=== PATIENT | female | born 1945 | race Caucasian/White ===

== ENCOUNTER 2019-09-08 11:40 | Emergency (ER) | payer MEDICARE ==
[2019-09-08 11:58] VITALS: BP 157/83
--- NOTE | 2019-09-08 12:08 | ED Physician Documentation ---
Nausea/Vomiting/Diarrhea - HISTORIAN Historian: patient - HPI Stated Complaint: Emesis Chief Complaint: Nausea,Vomiting,Diarrhea Additional Information: Patient presents to ED with a 30 hour history of nausea/vomiting. Patient odette mills vomiting started last night around 1900. She has had about 10 episodes of emesis since that time. She is traveling from [place], visiting family in [place] and ultimately going to [place]. Patient reports soft bowel movements the past 4 days. She denies fever, abdominal pain, blood in stool or urinary symptoms Onset: hours (30) Duration: persistent Timing: sudden onset Context: denies: out of country travel, bad food Severity: moderate - Associated Symptoms Vomiting: bilious Diarrhea: other (soft stools) Abdominal Pain: none - ROS CONST: denies: fever, chills CVS/RESP: denies: chest pain, shortness of breath, cough GI/: denies: constipation, problems urinating EYES/ENT: none MS/SKIN/LYMPH: other (muscle aches) NEURO/PSYCH: denies: headache - PAST HX Past History: none Other History: cardiac disease Surgeries/Procedures: cholecystectomy Allergies/Adverse Reactions: Allergies Allergy/AdvReac Type Severity Reaction Status Date / Time No Known Allergies Allergy Verified 09/08/19 11:58 Home Medications: Ambulatory Orders Medication Instructions Recorded Aspirin [Anastasiya] 1 tab PO DAILY 09/08/19 Atenolol [Tenormin] 0.5 tab PO DAILY 09/08/19 Fluticasone/Vilanterol [Breo 1 puff INH DAILY 09/08/19 Ellipta 100-25 Mcg INH] Levothyroxine Sodium [Synthroid] 1 tab PO DAILY 09/08/19 Ondansetron HCl Rapdis [Zofran Odt] 4 mg PO Q8 PRN #20 tab 09/08/19 Rosuvastatin Calcium [Crestor] 1 tab PO DAILY 09/08/19 - SOCIAL HX Smoking History: non-smoker Alcohol Use: none Drug Use: none - FAMILY HX Family History: none - VITAL SIGNS Vital Signs: Vital Signs Temp Pulse Resp BP Pulse Ox 99.3 F 75 16 157/83 98 09/08/19 13:29 09/08/19 13:29 09/08/19 13:29 09/08/19 13:29 09/08/19 13:29 - REVIEWED ASSESSMENTS Nursing Assessment Reviewed: Yes Vitals Reviewed: Yes Progress - Progress Progress: 1245 Patient feeling better after Zofran - EKG/XRAY/CT Comments: [address] elevation ED Results Lab/Radiology - Lab Results Lab Results: Lab Results 09/08/19 09/08/19 09/08/19 12:20 12:20 12:20 WBC 9.70 K/ul K/ul (4.00-12.00) RBC 4.75 M/ul M/ul (3.90-5.20) Hgb 14.8 g/dL g/dL (11.5-16.0) Hct 44.6 % % (34.5-46.5) MCV 94.0 fl fl (80.0-100.0) MCH 31.1 pg pg (28.0-34.0) MCHC 33.1 g/dL g/dL (30.0-36.0) RDW 11.8 % % (11.3-14.3) Plt Count 143 K/mm3 K/mm3 (130-400) Neut % (Auto) 88.6 % H % (39.0-79.0) Lymph % (Auto) 6.7 % L % (16.0-50.0) [place] % (Auto) 3.5 % % (0.0-11.0) Eos % (Auto) 0.9 % % (0.0-6.8) Baso % (Auto) 0.3 % % (0.0-1.5) Neut # (Auto) 8.6 # k/uL H # k/uL (1.4-7.7) Lymph # (Auto) 0.7 # k/uL # k/uL (0.6-4.0) [place] # (Auto) 0.3 # k/uL # k/uL (0.0-0.9) Eos # (Auto) 0.9 # k/uL H # k/uL (0.0-0.6) Baso # (Auto) 0.0 # k/uL # k/uL (0.0-0.5) Sodium 141 mmol/L mmol/L (137-145) Potassium 4.0 mmol/L mmol/L (3.5-5.1) Chloride 104 mmol/L mmol/L (98-107) Carbon Dioxide 26 mmol/L mmol/L (22-30) Anion Gap 15.0 BUN 14 mg/dL mg/dL (7-17) Creatinine 0.68 mg/dL mg/dL (0.52-1.04) Estimated Creat Clear 87 Est GFR ( Amer) > 60 (60 - ) Est GFR (Non-Af Amer) > 60 (60 - ) Glucose 153 mg/dL H mg/dL (74-106) Calcium 9.8 mg/dL mg/dL (8.4-10.2) Total Bilirubin 2.6 mg/dL H mg/dL (0.2-1.3) AST 38 U/L U/L (15-46) ALT 21 U/L U/L (0-35) Alkaline Phosphatase 71 U/L U/L (38-126) Troponin I < 0.012 ng/mL L ng/mL (0.012-0.034) Total Protein 8.4 g/dL H g/dL (6.3-8.2) Albumin 4.8 g/dL g/dL (3.5-5.0) UA negative for infection - Orders Orders: ED Orders Category Date Time Status Place IV Lock 1T Care 09/08/19 12:05 Active CBC/PLATELET/DIFF Routine Lab 09/08/19 12:20 Completed CMP Routine Lab 09/08/19 12:20 Completed TROPONIN I Stat Lab 09/08/19 12:20 Completed UA W/MICRO IF INDICATED Routine Lab 09/08/19 12:20 Received 0.9 % Sodium Chloride [Normal Saline] 1,000 ml Med 09/08/19 12:05 Discontinued IV Q1H Ondansetron HCl/Pf [Zofran] Med 09/08/19 12:05 Discontinued 4 mg IVP NOW ONE EKG WITH COMPARISON Stat Ther 09/08/19 Ordered Nausea Physical Exam - EXAM General Appearance: no acute distress, alert EENT: SALLY Neck: supple Respiratory: no resp distress, chest non-tender, breath sounds normal CVS: reg rate & rhythm, heart sounds normal, equal pulses Abdomen: non-tender. No: tenderness Back: non-tender, painless ROM. No: CVA tenderness Skin: warm/dry, normal color Extremities: non-tender, normal range of motion, no evidence of injury, no edema Neuro/Psych: oriented X3, motor nml, mood/affect nml Discharge Clincal Impression: Gastroenteritis Prescriptions: Ondansetron HCl Rapdis [Zofran Odt] 4 mg PO Q8 PRN #20 tab PRN Reason: nausea/vomiting Referrals: Primary Doctor,No [Primary Care Provider] - 2 Days Additional Instructions: 1. Zofran every 8 hours as needed for nausea/vomiting 2. Tylenol 650mg every 4 hours as needed for pain/fever 3. Drink plenty of fluids to maintain proper hydration. Avoid caffeine, energy drinks and alcohol 4. OTC Imodium as needed if diarrhea arises 5. Follow up with PCP within 1 week 6. Return to the ER for new or worsening symptoms Condition: Stable Disposition: 01 HOME, SELF-CARE Decision to Admit: NO Date of Decison to Admit: 09/08/19 Decision Time: 13:15
[2019-09-08] MEDS: 0.9 % SODIUM CHLORIDE 1,000 ML IV ONE (12:34)
[2019-09-08] MEDS: ONDANSETRON HCL/PF 4 MG/ 2ML VIAL IVP ONE (12:36)
[2019-09-08 12:39] LABS: BASOPHILS % 0.3 % (0.0-1.5); NEUTROPHILS # 8.6 # k/uL (1.4-7.7)
[2019-09-08 12:59] LABS: eGFR (Non-African) > 60
[2019-09-08 15:17] LABS: APPEARANCE,URINE CLEAR (CLEAR); COLOR,URINE YELLOW (YELLOW); OCCULT BLOOD,URINE NEGATIVE (NEGATIVE); UROBILINOGEN URINE 0.2 Eu (0.2-1.0)
== END 2019-09-08 13:29 | disposition home or self-care (01) ==
LOC: ED 11:40
DX: K52.9 Noninfective gastroenteritis and colitis, unspecified (principal)
CPT/HCPCS: 36415; 80053; 81002; 84484; 85025; 93005; 96361; 96374; 99284; J2405; J7030; S1016